=== PATIENT | female | born 2000 | race Caucasian/White ===

== ENCOUNTER 2024-11-20 18:01 | Emergency (ER) | payer OTHER ==
[~2024-11-20] VITALS: Wt 93.0 kg
[2024-11-20] MEDS ORDERED: ZOLOFT50 MG PO (18:12)
== END 2024-11-20 20:23 | disposition home or self-care (01) ==
LOC: ED 18:01
DX: O26.891 Other specified pregnancy related conditions, first trimester (principal); R10.2 Pelvic and perineal pain; O99.341 Other mental disorders complicating pregnancy, first trimester; F32.A Depression, unspecified; Z79.899 Other long term (current) drug therapy; Z3A.01 Less than 8 weeks gestation of pregnancy

== ENCOUNTER 2024-12-23 22:21 | Emergency (ER) | payer OTHER ==
[~2024-12-23] VITALS: Ht 157.4 cm; Wt 102.5 kg
[~2024-12-23 22:21] MED LIST: ZOLOFT50 MG PO
[2024-12-23 23:02] LABS: BILIRUBIN Negative (Negative); BLOOD Negative (Negative); CLARITY Clear (Clear); COLOR Yellow (Yellow); GLUCOSE Negative (Negative); KETONE 1+ (Negative); LEUKO ESTERASE 2+ (Negative); NITRITE Negative (Negative); SPECIFIC GRAVITY 1.025 (1.001-1.030)
[2024-12-23 23:30] LABS: BACTERIA 2+; EPITHELIAL CELLS 21-30; WBC 41-50 wbc/hpf (0-5)
[2024-12-23] MEDS ORDERED: AMOX-CLAV 875-1 EACH PO (23:49)
[2024-12-23] MEDS ORDERED: Amoxicillin/Clavulanate Pota 875 MG TAB PO ONE (23:50)
== END 2024-12-24 00:23 | disposition home or self-care (01) ==
LOC: ED 22:21
PROVIDERS: Internal Medicine
DX: O23.41 Unspecified infection of urinary tract in pregnancy, first trimester (principal); N39.0 Urinary tract infection, site not specified; O26.851 Spotting complicating pregnancy, first trimester; R10.2 Pelvic and perineal pain; Z3A.09 9 weeks gestation of pregnancy; Z79.899 Other long term (current) drug therapy

== ENCOUNTER → 2025-06-17 | Outpatient (CLI) | payer OTHER ==
[~2025-06-17] MED LIST changes: +AMOX-CLAV 875-1 EACH PO
== END | disposition home or self-care (01) ==
LOC: LAB 08:03
PROVIDERS: ATTEND Nurse Practitioner Family
DX: O99.810 Abnormal glucose complicating pregnancy (principal); Z3A.00 Weeks of gestation of pregnancy not specified